=== PATIENT | female | born 1970 | race Caucasian/White ===

== ENCOUNTER 2017-08-31 08:00 | Outpatient (CLI) | payer BC ==
[2017-08-31 15:48] LABS: ADD MAN DIFF? NO
[2017-08-31 15:52] LABS: BASOPHIL # 0.1 10^3/ul (0.0-0.1); EOSINOPHILS # 0.3 10^3/ul (0.0-0.5); EOSINOPHILS % 5.1 % (0.0-7.0); HEMATOCRIT 33.9 % (37.0-47.0); HEMOGLOBIN 10.3 g/dl (12.0-16.0); LYMPHOCYTES # 1.9 10^3/ul (0.8-2.9); LYMPHOCYTES % 31.9 % (15.0-51.0); MEAN CORPUSCULAR HEMOGLOBIN 23.3 pg (29.0-33.0); MEAN CORPUSCULAR HGB CONC 30.4 g/dl (32.0-37.0); MEAN CORPUSCULAR VOLUME 76.7 fl (82.0-101.0); MEAN PLATELET VOLUME 11.6 fl (7.4-10.4); MONOCYTE # 0.3 10^3/ul (0.3-0.9); NEUTROPHIL # 3.3 10^3/ul (1.6-7.5); PLATELET COUNT 235 10^3/UL (140-415); RED BLOOD COUNT 4.42 10^6/ul (4.20-5.40); RED CELL DISTRIBUTION WIDTH 15.5 % (11.5-14.5)
[2017-08-31 15:52] LABS: WHITE BLOOD COUNT 5.8 10^3/ul (4.8-10.8)
[2017-08-31 15:56] LABS: ADD UMIC YES; UR ASCORBIC ACID NEGATIVE (NEGATIVE); UR BILIRUBIN (Dip) NEGATIVE (NEGATIVE); UR BLOOD (Dip) 1+ mg/dL (NEGATIVE); UR CLARITY CLEAR (CLEAR); UR COLOR COLORLESS (YELLOW); UR GLUCOSE (Dip) NEGATIVE (NEGATIVE); UR KETONES (Dip) NEGATIVE (NEGATIVE); UR LEUKOCYTE ESTERASE (Dip) NEGATIVE Leu/ul (NEGATIVE); UR MUCUS FEW /HPF (NONE SEEN); UR NITRITE (Dip) NEGATIVE (NEGATIVE); UR RBC 0 /HPF (0-5); UR SPECIFIC GRAVITY (Dip) 1.003 (1.003-1.030); UR TOTAL PROTEIN (Dip) NEGATIVE (NEGATIVE); UR UROBILINOGEN (Dip) NEGATIVE (NEGATIVE); UR WBC 0 /HPF (0-5)
[2017-08-31 16:06] LABS: INR 1.01; PROTIME 13.4 Sec (11.9-14.9)
[2017-08-31 16:08] LABS: ALANINE AMINOTRANSFERASE 39 IU/L (13-69); ALBUMIN 4.7 g/dl (3.3-4.9); ALBUMIN/GLOBULIN RATIO 1.67; ALKALINE PHOSPHATASE 56 IU/L (42-121); ANION GAP 13 (8-16); ASPARTATE AMINO TRANSFERASE 26 IU/L (15-46); BILIRUBIN,INDIRECT 0.1 mg/dl (0-1.1); BILIRUBIN,TOTAL 0.1 mg/dl (0.2-1.3); CARBON DIOXIDE 27 mmol/L (21-31); CHLORIDE 106 mmol/L (97-110); GLUCOSE 84 mg/dl (70-220); TOTAL PROTEIN 7.5 g/dl (6.1-8.1)
[2017-08-31 16:09] LABS: POTASSIUM 3.5 mmol/L (3.5-5.1); SODIUM 142 mmol/L (135-144)
[2017-08-31 16:10] LABS: BLOOD UREA NITROGEN 12 mg/dl (7-20); CALCIUM 9.1 mg/dl (8.4-10.2); CREATININE 0.64 mg/dl (0.44-1.00)
[2017-08-31 16:12] LABS: PARTIAL THROMBOPLASTIN TIME 31.6 Sec (25.0-35.0)
== END 2017-08-31 23:59 | disposition home or self-care (01) ==
LOC: LAB 08:00
DX: K40.90 Unilateral inguinal hernia, without obstruction or gangrene, not specified as recurrent (principal)
CPT/HCPCS: 71046; 80053; 81001; 85025; 85610; 85730; 93005

== ENCOUNTER → 2018-06-27 | Outpatient (CLI) | payer BC | END | disposition home or self-care (01) | LOC: U/S 15:02 | DX: R10.2 Pelvic and perineal pain (principal) | CPT/HCPCS: 76856 ==

== ENCOUNTER → 2018-09-27 | Outpatient (CLI) | payer BC ==
[2018-09-27 15:10] LABS: ADD MAN DIFF? NO
[2018-09-27 15:12] LABS: BASOPHILS % 0.8 % (0.0-2.0); EOSINOPHILS # 0.2 10^3/ul (0.0-0.5); EOSINOPHILS % 2.9 % (0.0-7.0); HEMATOCRIT 28.7 % (37.0-47.0); HEMOGLOBIN 8.4 g/dl (12.0-16.0); LYMPHOCYTES # 1.4 10^3/ul (0.8-2.9); LYMPHOCYTES % 26.4 % (15.0-51.0); MEAN CORPUSCULAR HEMOGLOBIN 21.9 pg (29.0-33.0); MEAN CORPUSCULAR HGB CONC 29.3 g/dl (32.0-37.0); MEAN CORPUSCULAR VOLUME 74.9 fl (82.0-101.0); MEAN PLATELET VOLUME 11.1 fl (7.4-10.4); MONOCYTE # 0.4 10^3/ul (0.3-0.9); MONOCYTES % 6.8 % (0.0-11.0); NEUTROPHIL # 3.2 10^3/ul (1.6-7.5); NEUTROPHILS % 62.7 % (39.0-77.0); PLATELET COUNT 196 10^3/UL (140-415); RED BLOOD COUNT 3.83 10^6/ul (4.20-5.40); RED CELL DISTRIBUTION WIDTH 15.2 % (11.5-14.5)
[2018-09-27 15:12] LABS: WHITE BLOOD COUNT 5.1 10^3/ul (4.8-10.8)
[2018-09-27 15:50] LABS: IRON 25 ug/dl (35-150)
[2018-09-27 16:00] LABS: % IRON SATURATION 5 % SAT (22-52); TOTAL IRON BINDING CAPACITY 464 ug/dl (241-421)
[2018-09-27 16:52] LABS: FERRITIN 3.8 ng/ml (6.2-137.0)
== END | disposition home or self-care (01) ==
LOC: LAB 14:52
DX: D64.9 Anemia, unspecified (principal)
CPT/HCPCS: 82728; 83540; 85025